=== PATIENT | female | born 1970 | race Caucasian/White ===

== ENCOUNTER 2016-11-26 10:10 | Day surgery (SDC) ==
[2016-11-26 10:49] LABS: HEMOGLOBIN 12.4 g/dL (12.0-16.0); MCH 29.1 PG (27-31); MCHC 32.6 g/dL (33-37); MCV 89.2 FL (81-99); MPV 10.2 FL (7.4-10.4); RBC 4.26 XMIL (4.2-5.4)
[2016-11-26] MEDS ORDERED: NS 250 ML ONE ×2 (10:54→12:29)
[2016-11-26] MEDS ORDERED: ROCEPHIN 2 GM/NS 50 ML IV ONE (11:15)
[2016-11-26] MEDS ORDERED: VANCOMYCIN 1.25 GM in NS 250 ML IV ONE (11:15)
[2016-11-26 11:20] LABS: INR 1.02; PROTIME 10.4 Seconds (9.2-11.7)
[2016-11-26] MEDS ORDERED: BENADRYL ONE (12:29)
[2016-11-26 13:22] VITALS: BP 116/71
== END 2016-11-26 16:35 | disposition home or self-care (01) ==
LOC: CATH 10:10
PROVIDERS: ATTEND Internal Medicine
DX: S31.109A Unspecified open wound of abdominal wall, unspecified quadrant without penetration into peritoneal cavity, initial encounter (principal); Z79.899 Other long term (current) drug therapy
CPT/HCPCS: 36569; 85027; 85610; 96365; 96366; 96367; J0696; J1200; J3370; J7050